=== PATIENT | female | born 1965 | race Caucasian/White ===

== ENCOUNTER 2023-09-07 09:26 | Outpatient (CLI) | payer MEDICAID | END 2023-09-07 23:59 | disposition home or self-care (01) | LOC: MRI 09:26 | PROVIDERS: ATTEND Anesthesiology | DX: M51.16 Intervertebral disc disorders with radiculopathy, lumbar region (principal); M47.26 Other spondylosis with radiculopathy, lumbar region; M48.061 Spinal stenosis, lumbar region without neurogenic claudication; N28.1 Cyst of kidney, acquired; M51.46 Schmorl's nodes, lumbar region | CPT/HCPCS: 72148 ==